=== PATIENT | male | born 1955 | race Caucasian/White ===

== ENCOUNTER 2016-12-08 07:00 | Day surgery (SDC) | payer OTHER ==
[~2016-12-08] VITALS: Ht 185.4 cm; Wt 90.8 kg
[2016-12-08] VITALS (9 sets, daily range): BP systolic 110–142; BP diastolic 65–77; PULSE 55–94; RESP 8–17; O2SAT 92–97
[~2016-12-08 07:00] MED LIST: ASA/1TAB6 PO; ASPI-973 PO; CREST10T PO; DIPH25CA6 PO; LISI-571 PO; Lactated Ringer's 1,000 ML IV SCH; METF1000 PO
[2016-12-08] MEDS ORDERED: MetoCLOpramide 5 mg/mL 2 mL Inj ONE (07:01)
[2016-12-08] MEDS ORDERED: fentaNYL-PF 50 mCg/mL 2 mL Inj ONE (07:01)
[2016-12-08] MEDS ORDERED: Propofol 10,000 mCg/mL 20 mL Inj ONE (07:01)
[2016-12-08] MEDS ORDERED: Dexamethasone 4 mg/mL Inj ONE (07:01)
[2016-12-08] MEDS ORDERED: Ondansetron 2 mg/mL 2 mL Inj ONE (07:01)
[2016-12-08] MEDS ORDERED: Lactated Ringer's 1,000 ML IV ONE (07:47)
[2016-12-08] MEDS ORDERED: HYDROcodone-APAP 5-325 mg Tablet PO PRN (08:30)
[2016-12-08] MEDS ORDERED: Lactated Ringer's 500 ML IV PRN (09:26)
[2016-12-08] MEDS ORDERED: Lactated Ringer's 1,000 ML IV SCH (09:26)
--- NOTE | 2016-12-08 09:26 | PCM.HPANE ---
Patient Data Surgeon Admitting Provider: Attending Provider:Reilly Ng DO Primary Care Physician:Oswaldo Ma DO Other Provider:Lloyd Thompson Anesthesia Reason for Visit Left Carpal Tunnel Syndrome, Cubital Tunnel Syndro Ht/WT & BMI Height (Feet): 6 Height (Inches): 1 Weight (Kilograms): 118.84 Body Mass Index 34.00 Allergies Coded Allergies: Cat Dander (Verified Allergy, Unknown, itchy eyes, 11/04/15) Horse Dander (Verified Allergy, Unknown, itchy eyes, 11/04/15) Past Anesthesia History Anesthesia History: Denies:: Abnormal Airway, Anesthesia Reactions, Difficult Intubation, Fam Anesthesia Reaction Diabetes History Hx Diabetes?: Yes (Hgb A1C 6.0- 11/01/16) Glycemic Control: Oral Medication MRSA MRSA: No Medications Blood Thinner: Aspirin Hypertension Medication: Yes Home Meds Incl Beta Ryan: No Reported Medications Aspirin 81 Mg [id number] Mg PO DAILY Ref 0 12/06/16 ASA/Salicylam/Acetaminoph/Caff (Pain Relief Tablet)1 Each Tablet2 Each PO Q6H PAIN 12/06/16 Metformin (Glucophage)1,000 Mg Tablet1,000 Mg PO BID Ref 0 12/06/16 Lisinopril 5 Mg Tablet5 Mg PO DAILY #30 TABLET Ref 0 12/06/16 Rosuvastatin Calcium (Crestor)10 Mg [id number] Mg PO DAILY 30 Days Ref 0 12/06/16 diphenhydrAMINE HCl (Benadryl)25 Mg [id number] Mg PO HS PRN Ref 0 12/06/16 Discontinued Reported Medications Metformin ER 1,000 Mg [id number] Mg PO BIDAC Ref 0 11/04/15 Rosuvastatin Calcium (Crestor)20 Mg [id number] Mg PO DAILY 30 Days Ref 0 11/04/15 History History of ENT Problems?: No HEENT History: Denies:: Abnormal Airway Cataracts Difficult Intubation Dysphagia Glaucoma Sinus Problem TMJ Hx of Heart Problems?: Yes Cardiovascular History: Positive for:: Hypertension Thrombophlebitis (PE in 2013) Hx of Respiratory Problem?: Yes Respiratory History: Positive for:: Dyspnea (PE) Pulmonary Embolism (2013) Denies:: Asthma COPD Emphysema Oxygen Administration Pneumonia Tuberculosis Use of C-PAP Machine (sleep apnea- has not had sleep study) Use of Inhalers / NEBS Hx Neurologic Problems?: No Neurological History: Denies:: CVA Dementia Dizziness Headaches Multiple Sclerosis Parkinson's Disease Seizures TIA Hx of GI Problems?: Yes Gastrointestinal History: Positive for:: Hepatitis (HEP A age 16 -) Denies:: Cirrhosis Diverticulitis Gall Bladder Disease Gastroesphageal Reflux Heartburn Hiatal Hernia Liver Disease Rectal Bleeding Hx of Problems?: No Genitourinary History: Denies:: Kidney Stones Urinary Tract Infection (past hx of) Male Hx: Denies:: Prostate Problems Scrotal Mass Testicular Surgery Skin History: Denies:: History Skin Disorders? Pressure Ulcers Hx Musculoskeletal Problems?: Yes Musculoskeletal History: Positive for:: Musculoskeletal Trauma (left arm current admission problem) Denies:: Back Injury Degenerative Joint Fibromyalgia Joint Replacement Myasthenia Gravis Osteoarthritis Rheumatoid Arthritis Hx of Psycho/Social Problems?: No Psycho Social History: Denies:: Anxiety Hx Depression Hx Surgeries?: Yes (tonsils, vas) Hx Any Other Health Problems?: Yes Other History: Denies:: Cancer Thyroid Disease History Blood Transfusions: Positive for:: Accept Blood Products? Denies:: Blood Transfusions Hx Diabetes: Yes (Hgb A1C 6.0- 11/01/16) Hx Alcohol Use: YesAlcoholic Drinks Per Day: 4-5 drinks weekly summertime, winter one every few weeksHx Substance Use: Yes (marijuana randomly) Smoking Status: Never Smoker Have You Smoked inLast 12 mo: No Stop/Bang S-Snoring: Do You Snore Loudly: Yes T-Tired: feel tired, fatigued: Yes O-Obsered: Observed not breath: No P-Blood Pressure: treated: Yes B- Body Mass Index > 35 kg/m2: No A- Age over 50: Yes N- Neck Large Circumference: No G- Gender Male: Yes JACIEL Total Score: 5 Risk Assessment Category Category 1A: Patient has history of documented sleep apnea, and HAS NOT received any narcotic, sedative or anesthesia administration during this stay. Category 1B: Patient has history of documented sleep apnea, and HAS received any narcotic , sedative or anesthesia administration during this stay Category 2: Patient has SUSPECTED Obstructive Sleep Apnea, and HAS received any narcotic , sedative or anesthesia administration during this stay. Category 3: Patient has SUSPECTED Obstructive Sleep Apnea and HAS NOT received narcotic, sedative or anesthesia administration during this stay. Category 4: Outpatient in Procedural Areas with known sleep apnea or who screen positive for High Risk via the STOP/BANG questionnaire. Exam Exam General Appearance: Alert, Oriented X3, Cooperative, No Acute Distress HEENT/AIRWAY: MP 3 Lungs: Clear to Auscultation Heart: Exam Unremarkable Plan Impression Patient chart reviewed, patient interviewed and anesthestic plan with risks, benefits, and alternatives discussed, and informed consent obtained. ASA Physical Status: ASA2 Mod Systemic Disease Anesthetic Plan: GA Bene/Risks/Altern/Consents: Yes HP Complete Prior to Induction: Yes Herber Gilmore MD Dec 08, 2016 07:36
[2016-12-08] MEDS ORDERED: MetoCLOpramide 5 mg/mL 2 mL Inj IVPUSH PRN (09:30)
[2016-12-08] MEDS ORDERED: EPHEDrine Sulfate 50 mg/mL Inj IVPUSH PRN (09:30)
[2016-12-08] MEDS ORDERED: Ondansetron 2 mg/mL 2 mL Inj IVPUSH PRN (09:30)
[2016-12-08] MEDS ORDERED: Dexamethasone 4 mg/mL Inj IVPUSH PRN (09:30)
[2016-12-08] MEDS ORDERED: HYDROmorphone 1 mg/mL Inj IVPUSH PRN (09:30)
[2016-12-08] MEDS ORDERED: Phenylephrine 10,000 mCg/mL Inj IVPUSH PRN (09:30)
[2016-12-08] MEDS ORDERED: fentaNYL-PF 50 mCg/mL 2 mL Inj IVPUSH PRN (09:30)
[2016-12-08] MEDS ORDERED: Lidocaine 1%-Epi 1:100,000 20 mL Inj INFILTRATE ONE (09:44)
--- NOTE | 2016-12-08 11:09 | PCM.ANEP1 ---
Post Anesthesia Phase 1 PACU Phase 1 Assessment Vital Signs Vital Signs Date Time Temp Pulse Resp B/P Pulse Ox O2 Delivery O2 Flow Rate FiO2 12/08/16 10:54 36.2 86 16 116/67 94 Room Air 12/08/16 10:45 81 15 112/77 94 Room Air 12/08/16 10:40 36.6 82 16 113/72 95 Room Air 12/08/16 10:35 84 14 120/65 93 Room Air 12/08/16 10:30 82 15 110/65 94 Room Air 12/08/16 10:25 89 11 123/71 94 Room Air 12/08/16 10:20 91 12 126/69 95 Room Air 12/08/16 10:17 36.3 94 8 142/70 95 Room Air 12/08/16 07:48 35.9 55 17 125/73 97 Room Air Anesthetic Administered: GA Level of Alertness: Awake, talking LOUIS's with Equal Strength: Yes Pain: No Nausea or Vomiting: No Oxygen Delivery: Room Air Lungs: Clear to Auscultation Dermatome Level: Full Sensation Herber Gilmore MD Dec 08, 2016 11:09
--- NOTE | 2016-12-08 11:09 | PCM.ANEP2 ---
Post Anesthesia Evaluation ASA/CMS Post Anesthesia VS in Patient's Normal Range?: Yes Resp Stable; Airway Patent?: Yes CV Function & Hydration Stable: Yes Mental Status Recovered?: Yes Pain control Satisfactory?: Yes N/V Control Satisfactory?: Yes Herber Gilmore MD Dec 08, 2016 11:09
--- NOTE | 2016-12-09 00:05 | OP ---
[address] [address] OPERATIVE REPORT PATIENT: TASHA MENDEZ : 1955 MR#: [id number] ADMIT: 12/08/2016 JOB ID: [id number] DATE OF SURGERY: 12/08/2016 PREOPERATIVE DIAGNOSIS(ES): 1. Left carpal tunnel syndrome. 2. Left cubital tunnel syndrome. POSTOPERATIVE DIAGNOSIS(ES): 1. Left carpal tunnel syndrome. 2. Left cubital tunnel syndrome. PROCEDURE: 1. Left open carpal tunnel release. 2. Left cubital tunnel decompression. SURGEON: Reilly Ng DO. ANESTHESIA: General. HISTORY: The patient is a 61-year-old male with a longstanding history of left hand pain and paresthesias. He was treated conservatively for carpal, as well as cubital tunnel syndrome, and failed conservative treatment. Electrodiagnostic findings did demonstrate moderate to severe carpal tunnel syndrome and mild cubital tunnel syndrome on the left. I discussed with the patient with failure of conservative treatment, the option to proceed with surgical intervention. He understood the risks, benefits, alternatives and indications for a left open carpal tunnel release and left cubital tunnel decompression versus ulnar nerve transposition pending the stability of the ulnar nerve intraoperatively. He understood the risks include, but are not limited to, neurovascular injury, tendon injury, infection, failure of fixation, failure to resolve the patient's preoperative symptoms, stiffness and persistent pain; all of which may require further intervention. The patient had all questions answered. Consent was signed and placed in the chart. PROCEDURE IN DETAIL: The patient was brought to the operative suite and placed supine on the operating table. Surgical time-out was performed. Everyone in the room was in agreement. After appropriate anesthesia was obtained, left upper arm tourniquet was applied and the left upper extremity was prepped and draped in sterile fashion. Left upper extremity was then exsanguinated, tourniquet inflated to 250 mmHg. The patient's carpal tunnel was approach first. A 2 cm longitudinal incision was made in line with the radial aspect of the ring finger and the ulnar aspect palmaris longus. The incision was kept distal to the wrist crease and proximal to Smith's cardinal line. Subcutaneous tissues were dissected, bipolar electrocautery utilized to maintain hemostasis throughout the procedure. The palmar fascia was first identified and incised longitudinally in line with the skin incision, followed by exposure of the underlying transverse carpal ligament. Transverse carpal ligament was then released in its entirety to the distal extent of the antebrachial fascia. Copious irrigation was performed, followed by closure of the skin with 5-0 nylon in simple interrupted fashion. Attention was then turned toward the cubital tunnel. A 6 cm incision was made along the course of ulnar nerve within the cubital tunnel. Dissection was carried down just posterior to the medial epicondyle within the cubital tunnel. Care was taken to identify and protect any branches of medial antebrachial cutaneous nerve. The ulnar nerve was identified and released in the cubital tunnel as far proximal to the level of the medial intermuscular septum and as far distal to the deep fascia of flexor carpi ulnaris. Following complete decompression, the elbow was brought through a full functional range of motion. No subluxation of ulnar nerve was appreciated; thus, the procedure ended here without any need for further transposition. Copious irrigation was performed, followed by closure of subcutaneous tissues with 4-0 Vicryl and a running 4-0 nylon for the skin. Patient was then placed in a bulky soft dressing. ESTIMATED BLOOD LOSS: Less than 1 cc. COMPLICATIONS: None. DISPOSITION: The patient tolerated the procedure well. Anesthesia was reversed and the patient was transferred back to recovery. POSTOPERATIVE PLAN: The patient will follow up in the office in two weeks. Will remove the patient's sutures at that time and have him start working on range of motion and scar mobilization. MK
== END 2016-12-08 23:59 | disposition home or self-care (01) ==
LOC: SAS 07:00
PROVIDERS: ATTEND Orthopaedic Surgery
DX: G56.01 Carpal tunnel syndrome, right upper limb (principal); G56.22 Lesion of ulnar nerve, left upper limb; I10 Essential (primary) hypertension; E11.9 Type 2 diabetes mellitus without complications; Z79.84 Long term (current) use of oral hypoglycemic drugs; I25.10 Atherosclerotic heart disease of native coronary artery without angina pectoris
CPT/HCPCS: 64718; 64721; J1100; J2250; J2405; J2765; J7120

== ENCOUNTER 2017-01-26 06:59 | Day surgery (SDC) | payer OTHER ==
[~2017-01-26] VITALS: Ht 185.4 cm; Wt 89.8 kg
[2017-01-26] VITALS (8 sets, daily range): BP systolic 95–121; BP diastolic 41–68; PULSE 62–85; RESP 12–17; O2SAT 92–98
[2017-01-26] MEDS ORDERED: Propofol 10,000 mCg/mL 20 mL Inj ONE (07:00)
[2017-01-26] MEDS ORDERED: Ondansetron 2 mg/mL 2 mL Inj ONE (07:00)
[2017-01-26] MEDS ORDERED: MetoCLOpramide 5 mg/mL 2 mL Inj ONE (07:00)
[2017-01-26] MEDS ORDERED: Dexamethasone 4 mg/mL Inj ONE (07:00)
[2017-01-26] MEDS ORDERED: Lidocaine PF 1% 30 mL Inj ONE (07:00)
[2017-01-26] MEDS ORDERED: Lactated Ringer's 1,000 ML IV ONE ×2 (07:18→10:05)
[2017-01-26] MEDS ORDERED: HYDROcodone-APAP 7.5-325 mg Tablet PO PRN (08:00)
--- NOTE | 2017-01-26 08:14 | PCM.HPANE ---
Patient Data Date of Service: Jan 26, 2017 Surgeon Admitting Provider: Attending Provider:Reilly Ng DO Primary Care Physician:Oswaldo Ma DO Other Provider:Lloyd Thompson Anesthesia Reason for Visit Right Cubital Tunnel Syndrome, Right Carpal Tunnel Ht/WT & BMI Height (Feet): 6 Height (Inches): 1.00 Weight (Kilograms): 89.8 Body Mass Index 26.00 Allergies Coded Allergies: Cat Dander (Verified Allergy, Unknown, itchy eyes, 11/04/15) Horse Dander (Verified Allergy, Unknown, itchy eyes, 11/04/15) Past Anesthesia History Anesthesia History: Denies:: Abnormal Airway, Anesthesia Reactions, Difficult Intubation, Fam Anesthesia Reaction Diabetes History Hx Diabetes?: Yes (TYPE II) Type of Diabetes: Type II Glycemic Control: Oral Medication Current Bedside Blood Glucose: 114 MRSA MRSA: No Medications Blood Thinner: Aspirin Hypertension Medication: Yes Home Meds Incl Beta Ryan: Yes Reported Medications Aspirin 81 Mg [id number] Mg PO DAILY Ref 0 12/06/16 ASA/Salicylam/Acetaminoph/Caff (Pain Relief Tablet)1 Each Tablet2 Each PO Q6H PAIN 12/06/16 Metformin (Glucophage)1,000 Mg Tablet1,000 Mg PO BID Ref 0 12/06/16 Lisinopril 5 Mg Tablet5 Mg PO DAILY #30 TABLET Ref 0 12/06/16 Rosuvastatin Calcium (Crestor)10 Mg [id number] Mg PO DAILY 30 Days Ref 0 12/06/16 diphenhydrAMINE HCl (Benadryl)25 Mg [id number] Mg PO HS PRN Ref 0 12/06/16 History History of ENT Problems?: No HEENT History: Denies:: Abnormal Airway Cataracts Difficult Intubation Dysphagia Hearing Problem Sinus Problem TMJ Hx of Heart Problems?: Yes Cardiovascular History: Positive for:: Hypertension Thrombophlebitis (PE in 2013) Denies:: Abdominal Aortic Aneurism Atrial Fibrillation Chest Pain Coronary Artery Disease Other Cardiac History: no SOB Hx of Respiratory Problem?: Yes Respiratory History: Positive for:: Dyspnea (pulmonary embolus) Pulmonary Embolism (2014 - 1 yr on anticoagulants and then self-d/c) Denies:: Asthma COPD Emphysema Oxygen Administration Pneumonia Tuberculosis Use of C-PAP Machine (sleep apnea- has not had sleep study) Hx Neurologic Problems?: No Neurological History: Denies:: CVA Dementia Dizziness Headaches Multiple Sclerosis Parkinson's Disease Seizures Other Neurological Pertinent: c/o full spine pain, no paresthesias with neck movement, no LE radiculopathy/neuropathy Hx of GI Problems?: Yes Gastrointestinal History: Positive for:: Hepatitis (HEP 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 Pressure Ulcers Hx Musculoskeletal Problems?: Yes Musculoskeletal History: Positive for:: Musculoskeletal Trauma (right arm current admission problem) Denies:: Back Injury Degenerative Joint Joint Replacement Hx of Psycho/Social Problems?: No Psycho Social History: Denies:: Anxiety Hx Depression Hx Surgeries?: Yes (tonsils, vas, left CTR) Hx Any Other Health Problems?: Yes Other History: Denies:: Cancer Thyroid Disease History Blood Transfusions: Denies:: Blood Transfusions Hx Diabetes: Yes (TYPE II)Bedside Blood Glucose: 114 Hx Alcohol Use: YesAlcoholic Drinks Per Day: 4-5 drinks weekly summer, less winterHx Substance Use: Yes (marijuana randomly) Smoking Status: Never Smoker Have You Smoked inLast 12 mo: No Stop/Bang Treated for Sleep Apnea?: No Do You Have a CPAP Machine?: No S-Snoring: Do You Snore Loudly: Yes T-Tired: feel tired, fatigued: Yes O-Obsered: Observed not breath: No P-Blood Pressure: treated: Yes B- Body Mass Index > 35 kg/m2: No A- Age over 50: Yes N- Neck Large Circumference: No G- Gender Male: Yes JACIEL Total Score: 5 JACIEL Risk Assessment: High Risk, =/>3 Yes JACIEL Category 2: Yes Risk Assessment Category Category 1A: Patient has history of documented sleep apnea, and HAS NOT received any narcotic, sedative or anesthesia administration during this stay. Category 1B: Patient has history of documented sleep apnea, and HAS received any narcotic , sedative or anesthesia administration during this stay Category 2: Patient has SUSPECTED Obstructive Sleep Apnea, and HAS received any narcotic , sedative or anesthesia administration during this stay. Category 3: Patient has SUSPECTED Obstructive Sleep Apnea and HAS NOT received narcotic, sedative or anesthesia administration during this stay. Category 4: Outpatient in Procedural Areas with known sleep apnea or who screen positive for High Risk via the STOP/BANG questionnaire. Exam Exam Vital Signs Vital Signs Date Time Temp Pulse Resp B/P Pulse Ox O2 Delivery O2 Flow Rate FiO2 01/26/17 07:22 35.6 62 17 121/65 98 Room Air General Appearance: Alert, Oriented X3, Cooperative, No Acute Distress HEENT/AIRWAY: MP 2, Neck Movement (FROM), Mouth Opening (>3), Other (TMD>3) Lungs: Clear to Auscultation, Normal Air Movement Heart: Exam Unremarkable, Regular Rate/Rhythm, Normal S1, Normal S2, No Murmurs /Rubs/Gallops Meds/Labs/Diagnostics Admission Meds Current Medications Lactated Ringer's (Lr) 1,000 ml @ ud STK-MED ONCE IV Last administered on t 07:18; Start 01/26/17 at 07:18; Stop 01/26/17 at 07:19; Status DC Bedside Blood Glucose: 114 Plan Impression Patient chart reviewed, patient interviewed and anesthestic plan with risks, benefits, and alternatives discussed, and informed consent obtained. NPO Status: 01/25@1900 ASA Physical Status: ASA3 Severe Disease Anesthetic Plan: GA Bene/Risks/Altern/Consents: Yes HP Complete Prior to Induction: Yes Erik Subramanian MD Jan 26, 2017 08:14
[2017-01-26] MEDS ORDERED: Lactated Ringer's 1,000 ML IV SCH (08:33)
[2017-01-26] MEDS ORDERED: Lactated Ringer's 500 ML IV PRN (08:33)
[2017-01-26] MEDS ORDERED: fentaNYL-PF 50 mCg/mL 2 mL Inj IVPUSH PRN (08:35)
[2017-01-26] MEDS ORDERED: Dexamethasone 4 mg/mL Inj IVPUSH PRN (08:35)
[2017-01-26] MEDS ORDERED: Ondansetron 2 mg/mL 2 mL Inj IVPUSH PRN (08:35)
[2017-01-26] MEDS ORDERED: Phenylephrine 10,000 mCg/mL Inj IVPUSH PRN (08:35)
[2017-01-26] MEDS ORDERED: HYDROmorphone 1 mg/mL Inj IVPUSH PRN (08:35)
[2017-01-26] MEDS ORDERED: MetoCLOpramide 5 mg/mL 2 mL Inj IVPUSH PRN (08:35)
[2017-01-26] MEDS ORDERED: EPHEDrine Sulfate 50 mg/mL Inj IVPUSH PRN (08:35)
[2017-01-26] MEDS ORDERED: Lidocaine 1%-Epi 1:100,000 20 mL Inj INJ ONE (09:06)
--- NOTE | 2017-01-27 12:26 | PCM.ANEP1 ---
Post Anesthesia Phase 1 PACU Phase 1 Assessment Date of Service: Jan 26, 2017 Anesthetic Administered: GA Level of Alertness: Awake, talking LOUIS's with Equal Strength: Yes Pain: No Pain Scale Score: 0 Nausea or Vomiting: No Oxygen Delivery: Simple Mask Lungs: Clear to Auscultation, Normal Air Movement Erik Subramanian MD Jan 27, 2017 12:25
--- NOTE | 2017-01-27 12:27 | PCM.ANEP2 ---
Post Anesthesia Evaluation ASA/CMS Post Anesthesia VS in Patient's Normal Range?: Yes Resp Stable; Airway Patent?: Yes CV Function & Hydration Stable: Yes Mental Status Recovered?: Yes Pain control Satisfactory?: Yes N/V Control Satisfactory?: Yes Erik Subramanian MD Jan 27, 2017 12:27
--- NOTE | 2017-01-27 13:13 | OP ---
[address] [address] OPERATIVE REPORT PATIENT: TASHA MENDEZ : 1955 MR#: [id number] ADMIT: 01/26/2017 JOB ID: [id number] DATE OF SURGERY: 01/26/2017 PREOPERATIVE DIAGNOSIS(ES): 1. Right carpal tunnel syndrome. 2. Right cubital tunnel syndrome. POSTOPERATIVE DIAGNOSIS(ES): 1. Right carpal tunnel syndrome. 2. Right cubital tunnel syndrome. PROCEDURE: 1. Right open carpal tunnel release. 2. Right cubital tunnel decompression. SURGEON: Reilly Ng DO ORNAMENTAL METAL ERECTOR: Haley Ivan PA-C ANESTHESIA: General. INDICATION FOR PROCEDURE: The patient is a pleasant 61-year-old male with findings of bilateral carpal as well as cubital tunnel syndrome. He underwent several weeks prior a left carpal and cubital tunnel decompression and did extremely well but continued to have persistent symptoms to his right hand and opted to proceed with the same surgery. He is aware of the risks, benefits, and indications, as he has had the same procedure performed on the contralateral side. PROCEDURE IN DETAIL: The patient was brought to the operative suite and placed supine on the operating table. Surgical time-out was performed. Everyone the room was in agreement. After appropriate anesthesia was obtained a the right upper arm tourniquet was applied and the right upper extremity was prepped and draped in sterile fashion. The right upper extremity was then exsanguinated and the tourniquet inflated to 250 mmHg. The patient's carpal tunnel was approached first. A 2 cm longitudinal incision was made in line with the radial aspect of the ring finger and the ulnar aspect of the palmaris longus. The incision was kept distal to the wrist crease and proximal to Smith's cardinal line. Subcutaneous tissues were dissected. Bipolar electrocautery utilized to maintain hemostasis throughout the procedure. The palmar fascia was first identified and incised longitudinally in line with the skin incision followed by exposure of the underlying transverse carpal ligament. The transverse carpal ligament was then released in its entirety to include the distal extent of the antebrachial fascia. Copious irrigation was performed followed by closure of the skin with 5-0 nylon in a simple interrupted fashion. Attention was then turned towards the cubital tunnel. A 6 cm curvilinear incision was made overlying the course of the ulnar nerve within the cubital tunnel. Dissection was carried down to the cubital tunnel taking care to protect any branches of the medial antebrachial cutaneous nerves. The ulnar nerve was identified within the cubital tunnel and decompressed as far proximal to the level of the medial intermuscular septum and as far distal to include the deep fascia of the flexor carpi ulnaris. The elbow was then brought through a full functional range of motion. No subluxation of the ulnar nerve was appreciated. Copious irrigation was then performed, followed by closure of the subcutaneous tissues with Vicryl and a running nylon for the skin. The patient was then placed into a bulky soft dressing. ESTIMATED BLOOD LOSS: Less than 1 mL. COMPLICATIONS: None. DISPOSITION: The patient tolerated the procedure well, anesthesia was reversed, and the patient was transferred to the PACU for recovery. POSTOPERATIVE PLAN: The patient will follow up in my office in two weeks. I will remove the patient's sutures at that time and have him start working on range of motion and scar mobilization.
== END 2017-01-26 23:59 | disposition home or self-care (01) ==
LOC: SAS 06:59
PROVIDERS: ATTEND Orthopaedic Surgery
DX: G56.01 Carpal tunnel syndrome, right upper limb (principal); G56.21 Lesion of ulnar nerve, right upper limb; E11.9 Type 2 diabetes mellitus without complications; I10 Essential (primary) hypertension; I25.10 Atherosclerotic heart disease of native coronary artery without angina pectoris; I26.92 Saddle embolus of pulmonary artery without acute cor pulmonale; G89.29 Other chronic pain; F12.90 Cannabis use, unspecified, uncomplicated; K21.9 Gastro-esophageal reflux disease without esophagitis; Z79.84 Long term (current) use of oral hypoglycemic drugs; Z79.82 Long term (current) use of aspirin
CPT/HCPCS: 64718; 64721; J1100; J2250; J2405; J2765; J7120